=== PATIENT | male | born 1955 | race American Indian/Alaskan Native ===

== ENCOUNTER 2017-04-02 10:07 | Outpatient (CLI) | payer BC ==
--- NOTE | 2017-04-02 14:08 | Nuclear Medicine Report ---
BONE SCAN: History: Initial staging of prostate cancer. Comparison: No previous bone scan. Correlation is made with a noncontrast CT abdomen and pelvis performed the same day. After injection of isotope, gamma camera imaging of the bony system was done. There is a normal uptake of isotope throughout the bony structures without areas of significantly increased or decreased uptake. Mild degenerative uptake is noted in the shoulders, spine and knees. Normal uptake in the urinary system is seen. IMPRESSION: No evidence for metastatic disease to the bones.
--- NOTE | 2017-04-02 14:26 | Cat Scan Report ---
CT OF THE ABDOMEN AND PELVIS WITHOUT CONTRAST HISTORY: Malignant neoplasm of prostate. TECHNIQUE: Helical CT without contrast. Sagittal and coronal reformatted images. FINDINGS: Heart size is normal. The lung bases are clear. There is moderate multilevel thoracolumbar spondylosis. No evidence for blastic bony lesion or fracture. The liver, biliary system, pancreas, spleen and adrenal glands are unremarkable. The aorta is normal caliber. The bowel loops are normal caliber and wall thickness. Normal appendix. No evidence for obstruction or inflammatory changes. There are a few scattered punctate renal calyceal stones in both kidneys. No ureteral stones or hydronephrosis. A 3 cm cyst is identified at the inferior pole of the right kidney. A 2 cm cyst is noted at the superior pole of the left kidney. The bladder is unremarkable. The prostate gland measures 4.9 cm in diameter. No evidence for ascites, adenopathy or inflammatory changes. IMPRESSION: No evidence for metastatic disease to the abdomen or pelvis. Scattered, punctate bilateral renal stones. Bilateral simple renal cysts.
== END 2017-04-02 10:08 | disposition home or self-care (01) ==
LOC: NM 10:07
PROVIDERS: ATTEND Urology
DX: C61 Malignant neoplasm of prostate (principal); N20.0 Calculus of kidney; N28.1 Cyst of kidney, acquired; M47.894 Other spondylosis, thoracic region
CPT/HCPCS: 74176; 78306; A9503